=== PATIENT | female | born 2000 | race Caucasian/White ===

== ENCOUNTER 2023-07-16 10:11 | Outpatient (AMB) | payer OTHER, SELFPAY ==
--- NOTE | 2023-07-16 10:14 | A.OFFPC_ITS ---
Vital Signs 07/16/23 10:16 Height 5 ft 4.5 in Weight 103 lb 8 oz BMI 17.5 BP 110/60 Blood Pressure Location Rt brachial Position Sitting Pulse 71 Pulse Source Pulse Oximeter Pulse Oximetry (%) 99 Oxygen Delivery Method Room Air Intake Visit Reasons: NPV- requesting a phy Intake Note: pt is here to est care Is last menstrual period known: Yes Last menstrual period: 06/29/23 Allergies amoxicillin [From Augmentin] Allergy (Mild, Verified 07/16/23 11:03) Rash Medication List - Last Reconciled 07/16/23 by Jennie Duran MD doxycycline hyclate 100 mg PO DAILY norgestimate-ethinyl estradiol 0.18/0.215/0.25 mg-25 mcg 1 tab PO DAILY omeprazole 20 mg PO DAILY Tobacco use date assessed: 07/16/23 Dental Screening Dental Screen Date: 07/16/23 Did you have a dental visit in the last 12 months?: No Did you have a dental problem in the last 6 months where you did not have access to dental care?: No Was dental information given to patient?: Patient has dentist HPI NPV- requesting a phy HPI Details 23-year-old lady, new to practice, here to establish care with a new PCP and for physical exam. No medical records from previous PCP available for review. 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 She has environmental and seasonal allergies, previously was being seen at [facility], and was getting allergy shots, was being seen by Dr. Flannery , but stopped going in 2021, due to problems with transportation. She has history of anxiety depression, previously was on fluoxetine. Complains of heartburn has been taking omeprazole as needed. Has acne vulgaris, stay patient states that she has been tried on several acting medications in the past all of which has not helped in made things worse. However she has never been on any antibiotics for acne, just topical treatment. She does not smoke cigarettes, but does vaping on a regular basis. She goes to [facility] , who has been prescribing her control pills [facility] Medical History (Updated 07/23/23 @ 04:28 by Jennie Duran MD) Underweight Biventricular heart failure with reduced left ventricular function Acne vulgaris Anxiety and depression Heartburn symptom Environmental and seasonal allergies Surgical History (Updated 07/16/23 @ 11:21 by Jennie Duran MD) H/O removal of cyst Hx of eye surgery Family History Mother Mental health disorder Maternal Grandmother Mental health disorder Paternal Grandmother Mental health disorder Social History Housing: Apartment Patient Tobacco Use Status: Never used Tobacco Years Smoked: smokes THC e-Cigarette/Vaping Use: Currently Using Second Hand Smoke Exposure: No Current occupational status: employed Current occupation: [employer] Current occupational exposures/hazards: No Cognitive needs: No Hearing needs: No Vision needs: No Female Reproductive History Menstrual Date of last menstrual period: 06/29/23 control method: pills Other: Goes to [facility] Questionnaire PHQ-9 Over the last 2 weeks, how often have you been bothered by any of the following problems? 1. Little interest or pleasure in doing things: several days 2. Feeling down, depressed, or hopeless: several days 3. Trouble falling or staying asleep, or sleeping too much: nearly every day 4. Feeling tired or having little energy: nearly every day 5. Poor appetite or overeating: more than half the days 6. Feeling bad about yourself - or that you are a failure or have let yourself or your family down: more than half the days 7. Trouble concentrating on things, such as reading the newspaper or watching television: more than half the days 8. Moving or speaking so slowly that other people could have noticed. Or the opposite - being so fidgety or restless that you have been moving around a lot more than usual: several days 9. Thoughts that you would be better off or of hurting yourself in some way: not at all Total score: 15 Depression Screening Interpretation: Positive Depression Screening Follow-up: Existing condition and Community Mental Health Worker F/U (referref to Meagan for help with scheduling therapy appointment) Depression Screening Done: Yes 67316 - PHQ-9 Billing: Yes Source: Developed by Drs. Franklyn Jeffers, Ellyn Arguelles, Arsenio Vale and colleagues, with an educational lydia from [employer]. Thrive Questionnaire Date Thrive assessed: 07/16/23 I am a: Patient What is your living situation today?: I have a steady place to live Within the past 12 months, did the food you bought not last and you didn't have the money to get more?: Never true Within the past 12 months, did you worry whether your food would run out before you got money to buy more?: Never true Do you have trouble paying for medicines?: No Do you have trouble getting transportation to medical appointments?: No Do you have trouble paying your heating and electricity bill?: No Do you have trouble taking care of your child, family member or friend?: No Do you have trouble with day-to-day activities such as bathing, preparing meals, shopping, managing finances, etc.?: No Are you currently unemployed and looking for a job?: No Are you interested in more education?: No AUDIT C Alcohol Use Questionnaire (AUDIT-C) 1. How often do you have a drink containing alcohol?: Monthly or less 2. How many drinks containing alcohol do you have on a typical day when you are drinking?: 3 or 4 3. How often do you have six or more drinks on one occasion?: Never Total Score: 2 CLAY-7 AMB Questionnaire CLAY-7 Date CLAY - 7 assessed: 07/16/23 Feeling nervous, anxious, or on edge: 2 = More than half the days Not being able to stop or control worryin = More than half the days Worrying too much about different things: 2 = More than half the days Trouble relaxin = More than half the days Being so restless that it is hard to sit still: 3 = Nearly every day Becoming easily annoyed or irritable: 3 = Nearly every day Feeling afraid as if something awful might happen: 2 = More than half the days Total CLAY-7 score (0-4 normal; 5-9 mild; 10-14 moderate; 15-21 severe): 16 Source: Developed by Drs. Franklyn Jeffers, Ellyn Arguelles, Arsenio Vale and colleagues, with an educational lydia from [employer]. CLAY-7 Assessment Billing CLAY-7 Assessment Tool: CLAY-7 Assessment 71486 Review of Systems Const Reports as per HPI, Reports no additional complaints and Denies weakness Eyes Denies change in vision ENT Reports nasal congestion, Denies disequilibrium, Denies sinus pressure and Denies sore throat Card Denies chest pain and Denies syncope Resp Denies chest congestion and Denies cough GI Reports as per HPI, Denies melena, Denies hematochezia and Denies change in bowel habits Reports no additional complaints (Goes to OBGYN at [facility]) Musc Reports no additional complaints and Denies abnormal gait Skin/Breast Reports as per HPI Neuro Denies abnormal gait, Denies syncope, Denies lack of coordination, Denies seizure-like activity, Denies disequilibrium and Denies weakness Psych Reports as per HPI Endo Reports no additional complaints Red/Lymph Reports no additional complaints Aller/Immun Reports seasonal rhinorrhea Physical exam (Primary Care) Vital Signs: Last Vital Signs Pulse 71 07/16/23 10:16 BP 110/60 07/16/23 10:16 Pulse Ox 99 07/16/23 10:16 Oxygen Delivery Method Room Air 07/16/23 10:16 BMI result Body Mass Index 17.5 BMI Assessment/Plan discussion: Low BMI Low, Plan discussed: lifestyle, increase calorie intake and dietary Tobacco/Smoking Status: Tobacco use Status Tobacco use date assessed 07/16/23 07/16/23 10:28 Patient Tobacco Use Status Never used Tobacco 07/16/23 10:28 e-Cigarette/Vaping Use Currently Using 07/16/23 10:28 Are you ready to quit: No PHQ-9: PHQ-9 Score PHQ-9: Total score 15 07/22/23 03:21 Depression Screening Interpretation: Positive Depression Screening Follow-up: Existing condition and Community Mental Health Worker F/U (referref to Meagan for help with scheduling therapy appointment) Thrive Assessment: Date of Thrive Assessment Date Thrive assessed 07/16/23 07/16/23 10:41 Const Other: Alert oriented x3, no acute distress noted, ambulatory with normal gait, mother present during visit Nutritional Appearance: underweight Orientation/consciousness: patient oriented x3 HENMT Head: Yes normocephalic Ears: hearing grossly normal bilaterally, TM's normal bilaterally and EAC's normal General nose exam: Normal external nose present Face and sinus: Yes sinuses nontender and Yes face symmetric Mouth: Normal oral and palatal mucosa present, oropharynx normal and moist mucous membranes Eyes General: appearance normal, both eyes and all related structures Conjunctivae: conjunctivae normal Sclerae: sclerae normal Pupils: Equal, round and reactive pupils present EOM: EOMs intact bilaterally Neck Neck: Yes full ROM, Yes no lymphadenopathy and Yes supple Thyroid: Thyroid normal (Nonpalpable) Chest Chest palpation & inspection: normal inspection of the chest Breast/axilla palpation: normal palpation of the breasts Resp Effort & Inspection: normal respiratory effort and able to speak in complete sentences Auscultation: clear to auscultation bilaterally Cardio Rate: regular rate Rhythm: regular rhythm Heart sounds: S1 normal heart sound present and S2 normal heart sound present GI Palpation (GI): Soft to palpation, nontender, no guarding and no masses General: Yes no CVA tenderness and Yes deferred (Goes to [facility] OBGY) Back/Spine/Pelvis Back: no CVA tenderness and No back tenderness Skin Other: Acneiform lesions and comedones noted on face and chin area as well as on anterior neck and upper back Neuro General: patient oriented x3, gait normal, tone normal, moves all extremities, Normal light touch and pain sensation, no focal motor deficits and CN's II-XI in tact bilaterally Cranial nerves: Yes Equal, round and reactive pupils present Extrem General: Yes full ROM, Yes no joint enlargement, Yes no clubbing, cyanosis or edema and Yes normal gait Psych Appearance: grossly normal and well kempt Mental Status: mental status grossly normal Speech and movement: Normal speech and movement present Affect: normal affect Attitude: cooperative Thought process: Normal thought process present Thought content: Normal thought content present Office Procedures Flu Questionnaire Does the patient have a severe egg allergy?: No Does the patient have severe life threatening allergies?: No Does the patient have a fever or illness today?: No Has the patient ever had Guillain-Coffeen Syndrome?: No Has the patient ever had any past reaction to a flu shot?: No Immunizations flu vacc [id number] 6mos up(PF) 60 mcg(15 mcgx4)/0.5 mL IM syringe Performing Provider: Jennie Duran MD [place] [facility] [place] [facility] Administered by: Kristan Castellanos CMA on 07/16/23 10:38 Dose Route Admin Location Dispensed Lot Number Expiration Date NDC 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 Recommended dental visit every 6 months and regular eye exams, at least every 2 years. Take adequate calcium in diet and vitamin-D 3 at 2000 IU per cap once a day, in addition to weight-bearing exercises to help maintain good muscle tone and weight control. Instructed to do self-breast exam, and recommended to get yearly mammogram, starting at age 40. Flu vaccine given today. Request copy of vaccination record and medical records from her previous PCP for review. She goes to [facility] OBGYN for her control pills and cervical cancer screening and pelvic exam. Patient strongly advised to stop vaping (2) Environmental and seasonal allergies: Comment: Previously was getting allergy shots with Dr. Flannery , stopped in 2021 Code(s): J30.89 - Other allergic rhinitis Plan: Referral to Dr. Flannery at [facility] ordered (3) Acne vulgaris: Code(s): L70.0 - Acne vulgaris Plan: Will try on doxycycline 100 mg per capsule to take once a day for 30 days, take medication with food at all times. Advised to do client skin daily with a mild cleanser at bedtime (4) Anxiety and depression: Comment: Previously on fluoxetine Code(s): F41.9 - Anxiety disorder, unspecified; F32.A - Depression, unspecified Plan: Patient declined starting any medication but referred to Niru, our mental health coordinator for assistance in getting in to see a therapist (5) Heartburn symptom: Code(s): R12 - Heartburn Plan: Continue with omeprazole take it only as needed, avoidance of triggers for heartburn (6) Underweight: Code(s): R63.6 - Underweight Plan: Advised to stop vaping, recommended referral for nutrition consult but patient declined, CBC, fasting lipid panel, comprehensive metabolic panel, vitamin-D level ordered today Orders: Orders Complete Blood Count Auto Diff 07/16/23 F32.A - Depression, unspecified, F41.9 - Anxiety disorder, unspecified, J30.89 - Other allergic rhinitis, L70.0 - Acne vulgaris, R12 - Heartburn, Z00.01 - Encounter for general adult medical examination with abnormal findings Lipid Panel 07/16/23 F32.A - Depression, unspecified, F41.9 - Anxiety disorder, unspecified, J30.89 - Other allergic rhinitis, L70.0 - Acne vulgaris, R12 - Heartburn, Z00.01 - Encounter for general adult medical examination with abnormal findings Influenza [id number] Immunization 07/16/23 Z23 - Encounter for immunization Comprehensive [place]. Panel Fast 07/16/23 F32.A - Depression, unspecified, F41.9 - Anxiety disorder, unspecified, J30.89 - Other allergic rhinitis, L70.0 - Acne vulgaris, R12 - Heartburn, Z00.01 - Encounter for general adult medical examination with abnormal findings Vitamin D 25-OH Total 07/16/23 F32.A - Depression, unspecified, F41.9 - Anxiety disorder, unspecified, J30.89 - Other allergic rhinitis, L70.0 - Acne vulgaris, R12 - Heartburn, Z00.01 - Encounter for general adult medical examination with abnormal findings Referrals Dermatology Referral L70.0 - Acne vulgaris Allergy & Immunology Referral J30.89 - Other allergic rhinitis Medications: New doxycycline hyclate 100 mg PO DAILY 30 caps 0RF L70.0 - Acne vulgaris Coding Level of Care Code New Pt Prev Care [id number]([id number] Diagnoses Annual visit for general adult medical examination with abnormal findings Z00.01 Environmental and seasonal allergies J30.89 Acne vulgaris L70.0 Anxiety and depression F41.9; F32.A Heartburn symptom R12 Underweight R63.6 Additional Codes CLAY-7 Assessment Billing - CLAY-7 Assessment Tool: CLAY-7 Assessment [id number] ([id number])
[2023-07-16 10:16] VITALS: BP 110/60; PULSE 71; O2SAT 99; BMI 17.5
== END 2023-07-16 12:13 | disposition home or self-care (01) ==
PROVIDERS: Visit Provider Internal Medicine
DX: Z23 Encounter for immunization (principal)
CPT/HCPCS: 90471; 90686; 96127; 99385

== ENCOUNTER 2024-03-18 13:00 | Outpatient (AMB) | payer OTHER, SELFPAY ==
--- NOTE | 2024-03-18 13:06 | A.OFFPC_ITS ---
Vital Signs 03/18/24 13:07 Height 5 ft 4.5 in Weight 100 lb BMI 16.9 BP 114/76 Blood Pressure Location Lt brachial Position Sitting Pulse 85 Pulse Source Pulse Oximeter Pulse Oximetry (%) 98 Oxygen Delivery Method Room Air Intake Visit Reasons: Office visit Intake Note: Pt is here today for a sick visit. Pt c/o pain in her hands. Pt also states that last night she had a sharp pain on the R side of her lower back and both of her legs felt numb. Allergies amoxicillin [From Augmentin] Allergy (Mild, Verified 03/23/24 00:03) Rash Medication List - Last Reconciled 03/23/24 by Jennie Duran MD doxycycline hyclate 80 mg PO BID norgestimate-ethinyl estradiol 0.18/0.215/0.25 mg-25 mcg 1 tab PO DAILY omeprazole 20 mg PO DAILY Tobacco use date assessed: 03/18/24 Dental Screening Dental Screen Date: 03/18/24 Did you have a dental visit in the last 12 months?: Yes Did you have a dental problem in the last 6 months where you did not have access to dental care?: No Was dental information given to patient?: Patient has dentist HPI Office visit HPI Details 23-year-old lady here today accompanied by mom complaining of recurrent episodes of pain and stiffness in finger joints of both hands, not accompanied by any swelling. This is usually worse towards the end of the day and at night. She is currently working and uses her hands a lot. She also complains of 1 episode of sharp pain in her right lower quadrant accompanied by numbness and tingling in both legs which resolved spontaneously. She has been taking vpkg-wnf-[id number] pain relievers which affords only temporary relief. [facility] Medical History (Updated 03/18/24 @ 13:27 by Jennie Duran MD) Polyarthralgia Trigger finger (acquired) Underweight Biventricular heart failure with reduced left ventricular function Acne vulgaris Anxiety and depression Heartburn symptom Environmental and seasonal allergies Surgical History H/O removal of cyst Hx of eye surgery Family History Mother Mental health disorder Maternal Grandmother Mental health disorder Paternal Grandmother Mental health disorder Social History Housing: Apartment Patient Tobacco Use Status: Never used Tobacco Years Smoked: smokes THC e-Cigarette/Vaping Use: Currently Using Second Hand Smoke Exposure: No service: No Current occupational status: employed 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 Current occupational exposures/hazards: No Cognitive needs: No Hearing needs: No Vision needs: Yes Questionnaire Thrive Questionnaire Date Thrive assessed: 03/18/24 I am a: Patient What is your living situation today?: I choose not to answer this question Within the past 12 months, did the food you bought not last and you didn't have the money to get more?: I choose not to answer this question Within the past 12 months, did you worry whether your food would run out before you got money to buy more?: I choose not to answer this question Do you have trouble paying for medicines?: Yes Do you have trouble getting transportation to medical appointments?: I choose not to answer this question Do you have trouble paying your heating and electricity bill?: I choose not to answer this question Do you have trouble taking care of your child, family member or friend?: I choose not to answer this question Do you have trouble with day-to-day activities such as bathing, preparing meals, shopping, managing finances, etc.?: I choose not to answer this question Are you currently unemployed and looking for a job?: I choose not to answer this question Are you interested in more education?: I choose not to answer this question Please select the resources that you would like help with: Housing/Long Term Currently or been in a relationship where the following occur: I choose not to answer THRIVE Score: 0 AUDIT C Alcohol Use Questionnaire (AUDIT-C) 1. How often do you have a drink containing alcohol?: 2-4 times a month 2. How many drinks containing alcohol do you have on a typical day when you are drinking?: 3 or 4 3. How often do you have six or more drinks on one occasion?: Less than monthly Total Score: 4 CLAY-7 AMB Questionnaire CLAY-7 Date CLAY - 7 assessed: 03/18/24 Source: Developed by Drs. Franklyn Jeffers, Ellyn Arguelles, Arsenio Vale and colleagues, with an educational lydia from [employer]. CLAY-7 Assessment Billing CLAY-7 Assessment Tool: pt declined-do not bill Review of Systems Const All systems reviewed & are unremarkable except as noted in HPI and below ENT Reports no additional complaints Card Reports no additional complaints Resp Reports no additional complaints GI Reports no additional complaints Musc Reports as per HPI Skin/Breast Denies lesions and Denies rash Neuro Reports no additional complaints Physical exam (Primary Care) Vital Signs: Last Vital Signs Pulse 85 03/18/24 13:07 BP 114/76 03/18/24 13:07 Pulse Ox 98 03/18/24 13:07 Oxygen Delivery Method Room Air 03/18/24 13:07 BMI result Body Mass Index 16.9 BMI Assessment/Plan discussion: Low BMI Low, Plan discussed: lifestyle, increase calorie intake and dietary Tobacco/Smoking Status: Tobacco use Status Tobacco use date assessed 03/18/24 03/18/24 13:14 Patient Tobacco Use Status Never used Tobacco 03/18/24 13:14 e-Cigarette/Vaping Use Currently Using 03/18/24 13:14 Are you ready to quit: No PHQ-9: PHQ-9 Score PHQ-9: Total score 10 03/19/24 03:51 Thrive Assessment: Date of Thrive Assessment Date Thrive assessed 03/18/24 03/18/24 13:14 Currently or been in a relationship where the following occur: I choose not to answer Const Other: Alert oriented x3 accompanied by mom, underweight, no acute cardiorespiratory distress noted Nutritional Appearance: underweight Orientation/consciousness: patient oriented x3 HENMA Head: Yes normocephalic General nose exam: Normal external nose present Face and sinus: Yes face symmetric Mouth: Normal oral and palatal mucosa present, oropharynx normal and moist mucous membranes Eyes General: appearance normal, both eyes and all related structures Neck Neck: Yes full ROM, Yes no lymphadenopathy and Yes supple Thyroid: Thyroid normal (Nonpalpable) Resp Effort & Inspection: normal respiratory effort and able to speak in complete sentences Auscultation: clear to auscultation bilaterally Cardio Rate: regular rate Rhythm: regular rhythm Heart sounds: S1 normal heart sound present and S2 normal heart sound present GI Palpation (GI): Soft to palpation, nontender, no guarding and no masses Neuro General: patient oriented x3, gait normal, tone normal, moves all extremities, Normal light touch and pain sensation, no focal motor deficits and CN's II-XI intact bilaterally Extrem Other: Slight tenderness on palpation of left MCP General: Yes full ROM, Yes no joint enlargement, Yes no clubbing, cyanosis or edema and Yes normal gait Assessment and Plan Assessment & Plan (1) Underweight: Code(s): R63.6 - Underweight Plan: Patient advised to eat her meals regularly, avoid eating a lot of processed foods, junk food. Will check vitamin B12, vitamin-D and folic acid levels as well as TSH with reflex free T4, CBC and comprehensive metabolic panel. (2) Trigger finger (acquired): Code(s): M65.30 - Trigger finger, unspecified finger Plan: Advised to try massaging area with diclofenac gel 1% may use 3 times a day as needed, resting of joint strongly advised, if no improvement (3) Polyarthralgia: Code(s): M25.50 - Pain in unspecified joint Plan: Ordered labs for TSH with free T4 check, rheumatoid factor, total CK level, magnesium. Advised to try using kyqv-vqc-ovqbxgu diclofenac gel 1% to affected area 3 to 4 times a day as needed. Orders: Orders Vitamin D 25-OH Total 03/18/24 I50.814 - Right heart failure due to left heart failure, M25.50 - Pain in unspecified joint, M65.30 - Trigger finger, unspecified finger, R63.6 - Underweight Vitamin B12 and Folate 03/18/24 I50.814 - Right heart failure due to left heart failure, M25.50 - Pain in unspecified joint, M65.30 - Trigger finger, unspecified finger, R63.6 - Underweight TSH reflex Free T4 03/18/24 I50.814 - Right heart failure due to left heart failure, M25.50 - Pain in unspecified joint, M65.30 - Trigger finger, unspecified finger, R63.6 - Underweight Complete Blood Count Auto Diff 03/18/24 I50.814 - Right heart failure due to left heart failure, M25.50 - Pain in unspecified joint, M65.30 - Trigger finger, unspecified finger, R63.6 - Underweight Erythrocyte Sedimentation Rate 03/18/24 I50.814 - Right heart failure due to left heart failure, M25.50 - Pain in unspecified joint, M65.30 - Trigger finger, unspecified finger, R63.6 - Underweight Rheumatoid Factor 03/18/24 M25.50 - Pain in unspecified joint Comprehensive Met. Panel 03/18/24 I50.814 - Right heart failure due to left heart failure, M25.50 - Pain in unspecified joint, M65.30 - Trigger finger, unspecified finger, R63.6 - Underweight Magnesium 03/18/24 I50.814 - Right heart failure due to left heart failure, M25.50 - Pain in unspecified joint, M65.30 - Trigger finger, unspecified finger, R63.6 - Underweight Creatine Kinase Total 03/18/24 I50.814 - Right heart failure due to left heart failure, M25.50 - Pain in unspecified joint, M65.30 - Trigger finger, unspecified finger, R63.6 - Underweight Coding Level of Care Code Est Pt Level 4 (06530) Diagnoses Underweight R63.6 Trigger finger (acquired) M65.30 Polyarthralgia M25.50
[2024-03-18 13:07] VITALS: BP 114/76; PULSE 85; O2SAT 98; BMI 16.9
== END 2024-03-18 14:30 | disposition home or self-care (01) ==
PROVIDERS: PCP Internal Medicine; Visit Provider Internal Medicine
DX: R63.6 Underweight (principal); M65.30 Trigger finger, unspecified finger; M25.50 Pain in unspecified joint
CPT/HCPCS: 99214

== ENCOUNTER 2024-03-18 13:31 | Outpatient (REF) | payer OTHER, SELFPAY ==
[2024-03-18 16:14] LABS: MANUAL DIFF FLAG NO
[2024-03-18 16:30] LABS: Basophils Percent Auto 0.7 % (0-2); Eosinophils Absolute Auto 0.2 X10*3/uL (0.0-0.4); Eosinophils Percent Auto 2.9 % (0-4); Hematocrit 40.1 % (37.0-47.0); Hemoglobin 13.3 g/dl (12.0-16.0); Imm Gran Abs Auto 0.02 X10*3/uL (0.00-0.03); Imm Gran Pct Auto 0.3 % (0.0-0.4); Lymphocytes Absolute Auto 2.4 X10*3/uL (1.2-4.9); Lymphocytes Percent Auto 38.4 % (20-40); Mean Corpuscular HGB Conc 33.2 g/dl (31.0-35.0); Mean Corpuscular Hemoglobin 30.5 pg (27.0-33.0); Mean Platelet Volume 10.5 fL (9.4-12.3); Monocytes Absolute Auto 0.3 X10*3/uL (0.1-1.2); Monocytes Percent Auto 4.6 % (2-11); Neutrophils Absolute Auto 3.3 x10*3/uL (2.0-8.3); Neutrophils Percent Auto 53.1 % (45-73); Platelet Count 290 X10*3/uL (160-400); Red Blood Count 4.36 X10*6/uL (4.20-5.50); Red Cell Distribution Width 11.8 % (11.0-16.0); White Blood Count 6.1 X10*3/uL (4.8-10.8)
[2024-03-18 16:55] LABS: Rheumatoid Factor < 13.0 IU/mL (<15.0)
[2024-03-18 17:02] LABS: Alanine Aminotransferase 12 U/L (0-31); Albumin Level 4.4 g/dL (3.5-5.0); Alkaline Phosphatase 60 U/L (39-117); Anion Gap 10 (12-20); Aspartate Amino Transferase 14 U/L (5-31); Bilirubin Total 0.6 mg/dL (0.0-1.0); Blood Urea Nitrogen 8 mg/dL (9-16); Calcium 9.9 mg/dL (8.4-10.2); Carbon Dioxide 26 mmol/L (22-29); Chloride 107 mmol/L (96-108); Cholesterol 158 mg/dL (<200); Estimated Glomerular Filt Rate > 60; Glucose Fasting 95 mg/dL (60-99); Glucose Random 95 mg/dL (60-115); HDL Cholesterol 76 mg/dL (>40); LDL Cholesterol Calculated 68 mg/dL (<100); Magnesium 2.1 mg/dL (1.6-2.6); Potassium 3.4 mmol/L (3.3-5.1); Sodium 140 mmol/L (135-145); Total Protein 7.4 g/dL (6.5-8.0); Triglycerides 74 mg/dL (<150)
[2024-03-18 17:17] LABS: TSH reflex Free T4 0.64 uIU/mL (0.32-4.0); Vitamin D 25-OH Total 56.7 ng/mL (>30)
[2024-03-18 17:22] LABS: Folate 9.4 ng/mL (> or = 4.0); Vitamin B12 551 pg/mL (200-900)
[2024-03-18 17:38] LABS: Erythrocyte Sedimentation Rate 3 MM/HR (0-20)
== END 2024-03-18 13:32 | disposition home or self-care (01) ==
LOC: HO.HMGCLDS 13:31
PROVIDERS: PCP Internal Medicine; Visit Provider Internal Medicine
DX: Z00.01 Encounter for general adult medical examination with abnormal findings (principal); L70.0 Acne vulgaris; F41.9 Anxiety disorder, unspecified; F32.A Depression, unspecified; R12 Heartburn; J30.89 Other allergic rhinitis; R63.6 Underweight; I50.814 Right heart failure due to left heart failure; M65.30 Trigger finger, unspecified finger; M25.50 Pain in unspecified joint
CPT/HCPCS: 36415; 80053; 80061; 82306; 82550; 82607; 82746; 83735; 84443; 85025; 85652; 86431

== ENCOUNTER 2024-06-19 15:09 | Outpatient (AMB) | payer OTHER, SELFPAY ==
--- NOTE | 2024-06-19 15:20 | AM.OFFWIN_ITS ---
Intake Vital Signs 06/19/24 15:21 Height 5 ft 4.5 in Weight 104 lb BMI 17.6 BP 118/60 Blood Pressure Location Rt brachial Position Sitting Pulse 70 Pulse Source Pulse Oximeter Pulse Oximetry (%) 98 Oxygen Delivery Method Room Air Intake Visit Reasons: EP RT pointer finger pain, LRQ pain Intake Note: Patient here for pelvic pain that started Saturday after Hiking the previous weekend. She also wanted to have her finger on right hand checked out, she was told she had a cyst on it and has been very painful this past week. Patient Tobacco Use Status: Never used Tobacco Allergies amoxicillin [From Augmentin] Allergy (Mild, Verified 06/19/24 15:23) Rash Do you need a note to return to daycare/school/sports/work: No HPI HPI Comments History of Present Illness Details Patient is a 24-year-old female with 2 complaints today. First she states her right index finger has a cyst on it which has been there for awhile but is getting larger and more painful. She tells me she went to an urgent care in [place] where they did not x-ray and told her it was a cyst and to tried to do jwwez-ab-huoara exercises but there was nothing else to be done for it. She tells me her sister has had multiple similar cysts but they were more on her wrist than on her finger. Her 2nd complaint is she has right lower quadrant pain that extends into her right hip. She tells me she went hiking last weekend and typically does not go hiking and the pain is worse with movement. She has not taken any medications to make herself feel better. She denies any nausea vomiting diarrhea or fevers [facility] Medical History (Updated 06/19/24 @ 16:11 by Guerline Hyman PA-C) Polyarthralgia Trigger finger (acquired) Underweight Biventricular heart failure with reduced left ventricular function Acne vulgaris Anxiety and depression Heartburn symptom Environmental and seasonal allergies Surgical History H/O removal of cyst Hx of eye surgery Family History Mother Mental health disorder Maternal Grandmother Mental health disorder Paternal Grandmother Mental health disorder Social History (Reviewed 03/18/24 @ 13:12 by MOON Lucero Housing: Apartment Patient Tobacco Use Status: Never used Tobacco Years Smoked: smokes THC e-Cigarette/Vaping Use: Currently Using Second Hand Smoke Exposure: No service: No Current occupational status: employed 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 Current occupational exposures/hazards: No Cognitive needs: No Hearing needs: No Vision needs: Yes Review of Systems Const All systems reviewed & are unremarkable except as noted in HPI and below Physical Exam Vital Signs: Last Vital Signs Pulse 70 06/19/24 15:21 BP 118/60 06/19/24 15:21 Pulse Ox 98 06/19/24 15:21 Oxygen Delivery Method Room Air 06/19/24 15:21 BMI result Body Mass Index 17.6 Const General: cooperative, healthy appearing, comfortable, no acute distress and well developed Orientation/consciousness: patient oriented x3 Limitations: no limitations HEENT Head: Yes normal to inspection Ears: hearing grossly normal bilaterally General nose exam: Normal external nose present Face and sinus: Yes normal facial exam Eyes General: appearance normal, both eyes and all related structures Neck Neck: Yes normal visual inspection and Yes full ROM Resp Effort & Inspection: normal respiratory effort and able to speak in complete sentences GI Inspection: Yes normal to inspection Palpation (GI): Soft to palpation and nontender Skin General skin exam: no rashes or lesions noted Neuro General: patient oriented x3 Extrem General: Yes normal to inspection Right upper extremity: Extremity exam: right hand Details: normal to inspection, normal capillary refill, neuromotor exam normal, neurosensory exam normal, tendon exam normal, tenderness Location: of the 2nd digit Location: at the MCP joint and on the radial aspect, vascular exam Details: normal capillary refill, normal ROM of fingers and swelling; no unusual warmth, no abrasions, no lacerations and no ecchymosis Assessment & Plan Assessment & Plan (1) Ganglion cyst of finger of right hand: Code(s): M67.441 - Ganglion, right hand Plan: Likely a ganglion cyst versus other kind of cyst, we will send a referral for hand orthopedics to follow up with patient as it is getting larger and more painful. (2) Strain of muscle of right hip: Code(s): S76.011A - Strain of muscle, fascia and tendon of right hip, initial encounter Qualifiers: Encounter type: initial encounter Qualified Code(s): S76.011A - Strain of muscle, fascia and tendon of right hip, initial encounter Plan: Recommended rest and naproxen. Plan VSS Orders: Referrals Orthopedics Referral M67.441 - Ganglion, right hand Coding Level of Care Code Est Pt Level 4 (91253) Diagnoses Ganglion cyst of finger of right hand M67.441 Strain of muscle of right hip, initial encounter S76.011A Encounter type: initial encounter
[2024-06-19 15:21] VITALS: BP 118/60; PULSE 70; O2SAT 98; BMI 17.6
== END 2024-06-19 16:18 | disposition home or self-care (01) ==
PROVIDERS: PCP Internal Medicine; Visit Provider Physician Assistant
DX: M67.441 Ganglion, right hand (principal); S76.011A Strain of muscle, fascia and tendon of right hip, initial encounter

== ENCOUNTER → 2024-06-19 15:09 | Outpatient (BNVA) | payer OTHER, SELFPAY | PROVIDERS: PCP Internal Medicine; Visit Provider Physician Assistant ==

== ENCOUNTER 2024-07-07 09:34 | Outpatient (AMB) | payer OTHER, SELFPAY ==
--- NOTE | 2024-07-07 09:40 | MHC.OFFVIS ---
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 Patient reports she noticed this about a year ago. She expresses pain from this cyst and it is affecting her ROM. 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 Denies numbness and tingling. 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 Patient was seen at urgent care, where she was told that she had a ganglion cyst of the second MCP joint of the right hand. Today, she reports that this pain has continued, and that this inhibits her ability to work. Patient denies any numbness or tingling. No other acute complaints or concerns. [facility] Medical History (Updated 07/07/24 @ 10:39 by SALBADOR Leung) Polyarthralgia Trigger finger (acquired) Underweight Biventricular heart failure with reduced left ventricular function Acne vulgaris Anxiety and depression Heartburn symptom Environmental and seasonal allergies Surgical History H/O removal of cyst Hx of eye surgery Family History Mother Mental health disorder Maternal Grandmother Mental health disorder Paternal Grandmother Mental health disorder Social History Housing: Apartment Patient Tobacco Use Status: Never used Tobacco Years Smoked: smokes THC e-Cigarette/Vaping Use: Currently Using Second Hand Smoke Exposure: No service: No Current occupational status: employed 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 Neuro: Normal sensation of the tips of all digits of the right hand at this time Vascular: Cap refill brisk Pain: Patient reports no tenderness to palpation of the second MCP joint of the right hand No other tenderness to palpation noted Patient does report discomfort with ROM of the R hand ROM: Patient is able to make a closed fist and extend all digits of the R hand, but reports some discomfort when doing so Skin: No lacerations or abrasions. General: No ecchymosis, erythema, or evidence of infection. No focal area of fluctuance and swelling near the second MCP joint, no evidence of ganglion cyst Psych: Appears grossly normal Affect normal Attitude cooperative Results Reviewed Results Reviewed: X-rays obtained in the office today and independently reviewed by me, Alonzo Kovacs PA-C, demonstrate no fracture or acute bony abnormality. Assessment & Plan Assessment & Plan (1) Right hand pain: Code(s): M79.641 - Pain in right hand Category: Medical Plan 1. Pain of right index finger Ongoing for 1 year Patient is educated that there is no acute indication of a ganglion cyst at this time There is also no evidence of acute bony abnormality Patient is educated that I will refer her to OT for ROM, strengthening or the R hand in the setting of pain and stiffness of the R hand Patient is amenable to this plan Patient will follow up as needed with any acute concerns Orders: Orders OT Evaluation and Treatment Today M79.641 - Pain in right hand XR hand RT min 3V Today M79.641 - Pain in right hand Coding Level of Care Code New Pt Level 3 (96092) Diagnoses Right hand pain M79.641
[2024-07-07 09:41] VITALS: BMI 17.8
== END 2024-07-07 10:41 | disposition home or self-care (01) ==
LOC: HO.HOS 09:34
PROVIDERS: PCP Internal Medicine; Referring Provider Internal Medicine
DX: M79.641 Pain in right hand (principal)
CPT/HCPCS: 99203

== ENCOUNTER 2024-07-07 09:34 | Outpatient (REF) | payer OTHER, SELFPAY | END 2024-07-07 09:35 | disposition home or self-care (01) | LOC: HO.HOSX 09:34 | PROVIDERS: PCP Internal Medicine | DX: M79.641 Pain in right hand (principal) | CPT/HCPCS: 73130 ==

== ENCOUNTER 2024-12-19 11:54 | Outpatient (REF) | payer OTHER, SELFPAY ==
--- OUTSIDE RECORDS SUMMARY | 2024-12-19 11:57 | XMS_ITS | Encounter Summary ---
Author Organization [facility] Address [address] [place], [place] [address] Phone Care Team Providers Care Remnant Sorter Name Role Phone Tamiko Shelton MD Primary Care Provider [phone] Reason for Visit * Reason Comments Med Refill Encounter Details Date Type Department Care Team (Late st Contact Info) Description 01/26/2019 Refill [facility] [place] [address] [place] [address] Leonor Duggan MD Depression, unspecified depression type Social History Tobacco Use Types Packs/Day Years Used Date Smoking Tobacco: Never Smokeless Tobacco: Never Comments:no vaping Alcohol Use Standard Drinks/Week Comments No 0 (1 standard drink = 0.6 oz pur e alcohol) Hunger/Food Answer Date Recorded No 09/06/2018 Stable Housing Answer Date Recorded 0 09/06/2018 Transportation Concerns Answer Date Rec orded No 09/06/2018 Hazards in Home Answer Date Recorded No 09/06/2018 Financing Utilities Answer Date Recorde d No 09/06/2018 Safety at Home Answer Date Recorded No 09/06/2018 Outside Support Answer Date Recorded No 09/06/2018 Understanding Health Concerns Answer Da te Recorded No 09/06/2018 Financing Health Concerns Answer Date R ecorded No 09/06/2018 Missing School or Work Answer Date Shaka rded No 09/06/2018 Comments Unknown Sex and Gender Information Value Date Recorded Sex Assigned at Not on file Legal Sex Female 6:05 PM EST Gender Identity Female 12/20/2020 4:32 PM EDT Sexual Orientation Not on file documented as of this encounter Plan of Treatment Not on file documented as of this encounter Visit Diagnoses Diagnosis Depression, unspecified depression type documented in this encounter Care Teams Remnant Sorter Relationship Specialty Start Date End Date Tamiko Shelton MD [address] [place] [id number] PCP - General Pediatrics 10/19/22 08/14/23 documented as of this encounter
--- OUTSIDE RECORDS SUMMARY | 2024-12-19 11:57 | XMS_ITS | Encounter Summary ---
Author Organization [facility] Address [address] [place], [place] [id number] Phone Care Team Providers Care Back Tacker Name Role Phone Tamiko Shelton MD Primary Care Provider [phone] Reason for Visit * Reason Comments Med Refill Encounter Details Date Type Department Care Team (Late st Contact Info) Description 11/08/2021 Refill [facility] - [place] [address] [place] [address] Leonor Duggan MD Depression with anxiety Social History Tobacco Use Types Packs/Day Years Used Date Smoking Tobacco: Never Smokeless Tobacco: Never Comments:no vaping Alcohol Use Standard Drinks/Week Comments No 0 (1 standard drink = 0.6 oz pur e alcohol) Hunger/Food Answer Date Recorded In the last 12 months, did y ou or your family ever eat less than you felt you should because there wasn't enough money for food? No 08/29/2020 Stable Housing Answer Date Recorded Are you worried that in the next 2 months you may not have stable housing? No 08/29/2020 Transportation Concerns Answer Date Rec orded In the last 12 months, have you or your family ever had to go without healthcare because you didn't have a way to get there? No 08/29/2020 Hazards in Home Answer Date Recorded Think about the place you li ve. Do you have problems with any of the following? Pests (mice or roaches), mold, no/not working smoke detectors, water leaks, no window guards. No 2020 Financing Utilities Answer Date Recorde d In the last 12 months, has t he electric, gas, oil, or water company threatened to shut off your services in your home? No 08/29/2020 Safety at Home Answer Date Recorded Are you or your family worried about feeling saf e in your home? No 08/29/2020 Outside Support Answer Date Recorded Do you feel that you need mo re support from other people or programs to help you care for yourself or your family? No 08/29/2020 Understanding Health Concerns Answer Da te Recorded Do you need help understandi ng your or your child's healthcare needs (diagnosis, medications, plan, etc.)? No 08/29/2020 Financing Health Concerns Answer Date R ecorded In the last 12 months, was t here a time when your child needed to see a doctor or get medications or supplies but could not because of cost? No 08/29/2020 Missing School or Work Answer Date Shaka rded Did you or your child miss s chool or work because of a health problem that could have been avoided? No 08/29/2020 Comments No Sex and Gender Information Value Date Recorded Sex Assigned at Not on file Legal Sex Female 6:05 PM EST Gender Identity Female 12/20/2020 4:32 PM EDT Sexual Orientation Not on file documented as of this encounter Plan of Treatment Not on file documented as of this encounter Visit Diagnoses Diagnosis Depression with anxiety Dysthymic disorder documented in this encounter Care Teams Back Tacker Relationship Specialty Start Date End Date Tamiko Shelton MD [address] [place] [id number] PCP - General Pediatrics 10/19/22 08/14/23 documented as of this encounter
--- OUTSIDE RECORDS SUMMARY | 2024-12-19 11:57 | XMS_ITS | Clinical Summary ---
Author Organization [facility] Address [address] [place] [address] Phone Care Team Providers Care Non Destructive Testing Scientist Name Role Phone Unavailable Primary Care Provider Unavailabl e Allergies Active Allergy Reactions Criticality Noted Date Comments Amoxicillin-Pot Clavulanate Rash Low Environmental Postive Skin test/Positive RAST 11/07/2017 Dogs, dust mites, pollen Medications EPINEPHrine 0.3 MG/0.3ML injection syringe USE DIRECTED FOR ANAPHYLAXIS THEN CALL 911 10/06/19 21 Active Aczone 7.5 % gelIndications:Ac ne vulgaris Apply 1 application topically daily. 30 g 2 11/16/19 22 Active Vit-Fe Lxnbhxt-UI-LHZ ( Vitamin/Min +DHA) 27-0.8-200 MG capsuleIndication s:Encounter for preconception consultation Take 1 tablet by mouth daily. 90 capsule 2 06/13/20 22 Active FLUoxetine 20 MG capsuleIndication s:Depression with anxiety TAKE 1 CAPSULE (20 MG TOTAL) BY MOUTH ONCE DAILY AT APPROXIMATELY THE SAME TIME EACH DAY. 90 capsule 1 09/10/19 23 Active Omeprazole 20 MG Tablet Delayed Release Dispersible Take by mouth. 12/23/19 23 Active albuterol HFA 108 (90 Base) MCG/ACT inhalerIndication s:Bronchospasm Inhale 2 puffs every 4 (four) hours as needed for wheezing or shortness of breath (cough). 1 Units 12/24/19 23 Active Active Problems Problem Noted Date Diagnosed Date Cardiomyopathy 05/09/2023 Overview (05/09/2023): WITH RV DYSFUNCTION, OF UNKNOWN ETIOLOGY 04/2023 - Following with [facility]iology. Reduced EF 35-45%. Will be getting cardiac MRI. Proteinuria 01/11/2023 Overview (01/15/2023): Noted to have protein in urine at visit on 12/26/2022 and large amount on visit 01/11/2023. Had 1+ protein on first morning void (01/12/2023). Normal urine protein, creatinine and protein/creatinine ratio.Likely etiology of orthostatic proteinuria. Assessment & Plan (01/11/2023 5:08 PM EDT): Noted to have protein in urine at visit on 12/26/2022. Persistence of protein today (Large amount on dipstick). Normal blood pressure. Discussed likely etiology of orthostatic proteinuria. Will obtain first morning urine sample. To drop off in clinic tomorrow. Will also send for urine protein and creatinine. Has Cardiology appointment next month with EKG. Consider blood work and Nephrology referral pending results of repeat urine sample. Underweight 12/23/2022 Weight loss 12/14/2021 Assessment & Plan (12/23/2022 11:19 PM EDT): 12/2022: Wt 95 lbs, down from 102 lbs May 2022. Previously lost wt d/t GI sx but these are controlled now on omeprazole. States she is eating meals and snacks all day, except not always breakfast. Denies desire to lose weight. Has syncope, headaches. Return in 3 days for extended eval . Possible eating d/o. Menses just ended. Assessment & Plan (06/13/2022 9:21 PM EDT): Stable. GI symptoms have resolved. Flat foot 11/15/2021 Allergy 12/21/2020 Overview (06/07/2021): Gets allergy shots at [facility]. Has epipen per city editor from prior reaction to allergy shot. Chronic gastritis without bleeding 03/02/2019 Overview (08/26/2019): doing well on Zantac, weight has stabilized Taking Zantac daily with good effect Assessment & Plan (12/23/2022 11:16 PM EDT): Doing well on omeprazole Assessment & Plan (06/13/2022 9:22 PM EDT): Improved now Assessment & Plan (08/29/2020 6:56 PM EST): Stable. Patient reports taking Zantac-will check with pharmacy but should be transitioned to different medication if this is the case due to recall Assessment & Plan (08/27/2019 9:50 AM EST): Improved on Zantac daily Depression with anxiety 11/05/2018 Overview (12/23/2022): with anxiety as well, started on Prozac SCARED scores improved on Prozac 10, increased to 20 mg 11/2018-Doing well on Prozac 20 mg 12/2022: stopped fluoxetine for awhile, restarted recently at 20 mg - had been increased to 30 mg in May but she doesn't think she took the higher dose. No longer has therapist. Assessment & Plan (11/15/2021 7:37 PM EDT): Stable Assessment & Plan (08/29/2020 6:55 PM EST): Doing well on Prozac 20 mg Assessment & Plan (08/27/2019 9:46 PM EST): Will increase Prozac to 30 mg for increased depressive symptoms (though PHQ9 score low) and recommended recheck in 4 weeks. Dry skin 07/30/2018 Overview (08/26/2019): Uses all hypoallergenic products Assessment & Plan (08/27/2019 9:57 AM EST): Persists, recommended emolients BID and use Zyrtec as needed for itchiness. Bronchospasm 11/06/2017 Overview (11/23/2020): Acute, associated with illness 10/2017 Last Assessment & Plan: ?? Use your albuterol inhaler 4 puffs every 4 hours for the next 2 days, then as needed. ?? Monitor for worsening difficulty breathing, fever, dehydration, or any other new or worsening symptoms. Overview: Acute, associated with illness 10/2017 Last Assessment & Plan: ?? Use your albuterol inhaler 4 puffs every 4 hours for the next 2 days, then as needed. ?? Monitor for worsening difficulty breathing, fever, dehydration, or any other new or worsening symptoms. Acne vulgaris 04/11/2016 Overview (11/23/2020): Improved on OCP and topicals Has been following with Dr. Logan. Using topicals Overview: Using OTC face wash, seeing Dr. Logan Last Assessment & Plan: Will get f/u eval Dr. Logan. Recommend resuming the treatment she recommended. Assessment & Plan (06/13/2022 9:21 PM EDT): Improved on topical regimen. Will discontinue spironolactone given planning Assessment & Plan (11/15/2021 7:37 PM EDT): On OCP+ aczone. Will also add spironolactone. Recheck 4 weeks. Discussed risks/side effects. Assessment & Plan (08/29/2020 6:55 PM EST): Stable. Following with derm Assessment & Plan (08/27/2019 9:57 AM EST): Much improved. Assessment & Plan (02/26/2018 9:36 AM EDT): Continue to use OCP. Will start tretinoin cream. Assessment & Plan (06/18/2017 3:25 PM EDT): Will get f/u eval Dr. Logan. Recommend resuming the treatment she recommended. Resolved Problems Problem Noted Date Diagnosed Date Resolved Date Pruritic erythematous rash 12/21/2020 1 Need for case management follow-up 08/29/2020 06/13/2022 Assessment & Plan (08/29/2020 4:54 PM EST): Virtual WCV done 08/29/2020 - follow-up needs: ?? Height, Weight ?? Blood Pressure ?? Hearing ?? Scoliosis screening ?? Vaccines: Hep a, flu Tension headache 08/27/2019 08/29/2020 Overview (08/29/2020): discssed triggers, recommended increased sleep and stress reduction 08/2020-now resolved Right patellofemoral syndrome 07/30/2018 08/26/2019 Overview (03/05/2019): Referred to PT Seen by educational program director and given orthotics Seeing PT at [facility], also saw ortho there who noted femoral anteversion and intoeing which makes patellofemoral syndrome more likely Chronic back pain 07/30/2018 08/26/2019 Overview (03/09/2019): Getting PT at [facility] Bronchospasm 11/06/2017 07/30/2018 Overview (07/30/2018): Acute, associated with illness 10/2017 None since that episode 07/2018 Assessment & Plan (11/06/2017 11:35 AM EDT): ?? Use your albuterol inhaler 4 puffs every 4 hours for the next 2 days, then as needed. ?? Monitor for worsening difficulty breathing, fever, dehydration, or any other new or worsening symptoms. Right shoulder pain 10/19/2017 06/13/20 Overview (01/18/2021): Cause uncertain. Has occurred once in past. No trauma, no sports. Will apply sling and get ortho eval where XRays will be done also; Ortho eval with normal xrays, f/u with Dr. De La Paz in 3 weeks 10/2020-referred to PT 12/2020-improved with PT Epidermoid cyst of skin 06/18/201705/20 Overview (11/23/2020): L neck - will get vivienne Parra; was on antibiotics, s/p I&D, waiting to do full excision until summer Was excised, sometimes the site itches, healing well per patient Overview: L neck - will get vivienne Parra; was on antibiotics, s/p I&D, waiting to do full excision until summer Last Assessment & Plan: Follow up with surgery. Assessment & Plan (07/29/2017 3:29 PM EST): Follow up with surgery. Costochondritis 06/18/2017 07/29/2017 Overview (06/18/2017): Rest, advil if needed Immunizations Immunization Administration Dates Next Due COVID-19 Pfizer, monovalent, 12+ years 1 DTaP 05/17/2006, 4,2002,08/24,2002 HPV Vaccine 9 Valent 07/29/2017 HPV, Quadrivalent 06/23/2014 Hep A, Adult 06/13/2022 Hep A, ped/adol 08/26/2019 Hep B, ped/adol 01/14/2003,2002,2002 Hib (PRP-T) 07/30/2003, 3,2002,06/23 IPV 05/17/2006, 3,2002,06/23 Influenza 06/23/2014,05/07/2013,04/25/2012 Influenza, injectable, quadr ivalent, preservative free 06/13/2022,12/13/2021 MMR 04/16/2007,07/30/2003 Meningococcal Conj (Menactra) MCV4P 08/26/2019,1 09/25/2015 Pneumococcal Conjugate 07/30/2003,2002,2002,06/23 Tdap 05/04/2013 Varicella 04/16/2007,04/20/2003 Family History Relation Name Status Comments Other 1 Alive Other 2 Alive Other 3 Alive Paternal Grandfather Alive Paternal Grandmother Alive Social History Tobacco Use Types Packs/Day Years Used Date Smoking Tobacco: Never Smokeless Tobacco: Never Tobacco Cessation:Counseling Given: Not Answered Alcohol Use Standard Drinks/Week Comments No 0 (1 standard drink = 0.6 oz pur e alcohol) Hunger/Food Answer Date Recorded In the last 12 months, did y ou or your family ever eat less than you felt you should because there wasn't enough money for food? No 06/13/2022 Stable Housing Answer Date Recorded Are you worried that in the next 2 months you may not have stable housing? No 06/13/2022 Transportation Concerns Answer Date Rec orded In the last 12 months, have you or your family ever had to go without healthcare because you didn't have a way to get there? No 06/13/2022 Hazards in Home Answer Date Recorded Think about the place you li ve. Do you have problems with any of the following? Pests (mice or roaches), mold, no/not working smoke detectors, water leaks, no window guards. No 2021 Financing Utilities Answer Date Recorde d In the last 12 months, has t he electric, gas, oil, or water company threatened to shut off your services in your home? No 06/13/2022 Safety at Home Answer Date Recorded Are you or your family worried about feeling saf e in your home? No 06/13/2022 Outside Support Answer Date Recorded Do you feel that you need mo re support from other people or programs to help you care for yourself or your family? No 06/13/2022 Understanding Health Concerns Answer Da te Recorded Do you need help understandi ng your or your child's healthcare needs (diagnosis, medications, plan, etc.)? No 06/13/2022 Financing Health Concerns Answer Date R ecorded In the last 12 months, was t here a time when your child needed to see a doctor or get medications or supplies but could not because of cost? No 06/13/2022 Missing School or Work Answer Date Shaka rded Did you or your child miss s chool or work because of a health problem that could have been avoided? No 06/13/2022 Comments No Sex and Gender Information Value Date Recorded Sex Assigned at Not on file Legal Sex Female 6:05 PM EST Gender Identity Female 12/20/2020 4:32 PM EDT Sexual Orientation Not on file Last Filed Vital Signs Vital Sign Reading Time Taken Comments Blood Pressure 117/78 01/11/2023 3:31 PM EDT Pulse 85 01/11/2023 3:31 PM EDT Temperature 36.6 ??C (97.9 ??F) 08/18/2021 12:[address] Respiratory Rate 20 06/16/2019 2:29 PM EDT Oxygen Saturation 99% 06/16/2019 2:29 PM EDT Inhaled Oxygen Concentration - - Weight 44.1 kg (97 lb 3.2 oz) 01/11/2023 3:31 PM EDT Height 163.8 cm (5' 4.5 ) 06/13/2022 10:13 AM ED T Body Mass Index 16.43 06/13/2022 10:13 AM EDT Plan of Treatment Health Maintenance Due Date Last Done Comments Men B Vaccine (1 of 2 - Standard) 2018 DTaP,Tdap,and Td Vaccines (7 - Td or Tdap) 05/04/2023 05/04/2013, 05/17/2006, 10/22/2003, Additional history exists Influenza Vaccines (#1) 2024 06/13/20, 12/13/2021, 06/23/2014, Additional history exists COVID-19 Vaccine (3 - 2023-2 5 season) 2024 08/23/2021, 12/14/2020 Hepatitis B Vaccines Completed 01/14/2003, 2002, 2002 HIB Vaccines Completed 07/30/2003, 10/2002, 2002, Additional history exists Pneumococcal Vaccine Completed 07/30/2003, 2002, 2002, Additional history exists IPV Vaccines Completed 05/17/2006, 09/2002, 2002, Additional history exists MMR Vaccines Completed 04/16/2007, 07/30/2003 Varicella Vaccines Completed 04/16/2007, 04/20/2003 HPV Vaccines Completed 07/29/2017, 06/23/2014 Meningococcal Vaccine Completed 08/26/2019, 016 Hepatitis A Vaccines Completed 06/13/2022, 08/26/19 20 Procedures * Due to [place] [employer] law, this organization might not be sharing sensitive test results. Procedure Name Priority Date/Time Associated Diagnosis Comments CHLAMYDIA AND GONORRHEA, AMPLIFIED Routine 06/13/2022 1:09 PM EDT Well adult exam from Last 3 Months or Most Recently Relevant to Health Maintenance Results * Due to [place] [employer] law, this organization might not be sharing sensitive test results. * Chlamydia and Gonorrhoea, Amplified (06/13/2022 1:09 PM EDT) Chlamydia trachomatis RNA, TMA Not Detected Not Detected 06/14/2022 10:31 AM EDT [facility] Neisseria gonorrhoeae, ASHLEY Not Detected Not Detected 06/14/2022 10:31 AM EDT [facility] Specimen Type U 06/14/2022 10:31 AM EDT [facility] Urine (Urine) 06/13/2022 1:0 9 PM EDT 06/13/2022 2:22 PM EDT us Leonor Duggan MD LAB MICROBIOLOGY - GENERAL ORDER IVIS Final Result [facility] from Last 3 Months or Most Recently Relevant to Health Maintenance
--- OUTSIDE RECORDS SUMMARY | 2024-12-19 11:57 | XMS_ITS | Encounter Summary ---
Author Organization [facility] Address [address] [place], [place] [id number] Phone Care Team Providers Care Searchlight Operator Name Role Phone Tamiko Shelton MD Primary Care Provider [phone] Reason for Visit * Reason Comments Med Refill Encounter Details Date Type Department Care Team (Late st Contact Info) Description 04/27/2019 Refill [facility] Pediatrics - [place] [address] [place] [address] Leonor Duggan MD Depression, unspecified depression type [...] type documented in this encounter Care Teams Searchlight Operator Relationship Specialty Start Date End Date Tamiko Shelton MD [address] [place] [id number] PCP - General Pediatrics 10/19/22 08/14/23 documented as of this encounter
--- OUTSIDE RECORDS SUMMARY | 2024-12-19 11:57 | XMS_ITS | Encounter Summary ---
Author Organization [facility] Address [address] [place], [place] [id number] Phone Care Team Providers Care Commercial Counsel Name Role Phone Tamiko Shelton MD Primary Care Provider Reason for Visit * Reason Comments Med Refill Encounter Details Date Type Department Care Team (Late st Contact Info) Description 02/02/2019 Refill [facility] Pediatrics - [place] [address] [place] [address] Leonor Duggan MD Depression, unspecified depression type [...] type documented in this encounter Care Teams Commercial Counsel Relationship Specialty Start Date End Date Tamiko Shelton MD [address] [place] [id number] PCP - General Pediatrics 10/19/22 08/14/23 documented as of this encounter
--- OUTSIDE RECORDS SUMMARY | 2024-12-19 11:57 | XMS_ITS | Encounter Summary ---
Author Organization [facility] Address [address] [place] [address] Phone Care Team Providers Care Sand Mixer Operator Name Role Phone Tamiko Shelton MD Primary Care Provider [phone] Reason for Visit * Reason Comments Med Refill Encounter Details Date Type Department Care Team ([facility] st Contact Info) Description 06/01/2022 Refill [facility] Pediatrics - [place] [address] [place] [address] Liz Mccormick, FLORIAN [address] [place] [address] Acne vulgaris Social History Tobacco Use Types Packs/Day Years [...] as of this encounter Visit Diagnoses Diagnosis Acne vulgaris Other acne documented in this encounter Care Teams Sand Mixer Operator Relationship Specialty Start Date End Date Tamiko Shelton MD [address] [place] [id number] PCP - General Pediatrics 10/19/22 08/14/23 documented as of this encounter
--- OUTSIDE RECORDS SUMMARY | 2024-12-19 11:57 | XMS_ITS | Encounter Summary ---
Author Organization [facility] Address [address] [place], [place] [phone] Phone Care Team Providers Care Digital Measurement Advisor Name Role Phone Tamiko Shelton MD Primary Care Provider [phone] Reason for Visit * Reason Comments Med Refill Encounter Details Date Type Department Care Team (Late st Contact Info) Description 02/11/2022 Refill [facility] Pediatrics - [place] [address] [place] [address] Leonor Duggan MD Acne vulgaris Social History Tobacco Use Types [...] on file documented as of this encounter Miscellaneous Notes * Telephone Encounter - Leonor Duggan MD - 02/16/2022 12:40 PM EDT Dose changed to 50 mg documented in this encounter Plan of Treatment Not on file documented as of this encounter Visit Diagnoses Diagnosis Acne vulgaris Other acne documented in this encounter Care Teams Digital Measurement Advisor Relationship Specialty Start Date End Date Tamiko Shelton MD [address] [place] [id number] PCP - General Pediatrics 10/19/22 08/14/23 documented as of this encounter
--- OUTSIDE RECORDS SUMMARY | 2024-12-19 11:57 | XMS_ITS | Encounter Summary ---
Author Organization [facility] Address [address] [place] [address] Phone Care Team Providers Care Hot Pond Operator Name Role Phone Tamiko Shelton MD Primary Care Provider [phone] Reason for Visit * Reason Comments Med Change Request Encounter Details Date Type Department Care Team ([facility] st Contact Info) Description 03/28/2022 Refill [facility] Pediatrics - [place] [address] [place] [address] Leonor Duggan MD Depression with anxiety; Abdominal pain, unspecified abdominal location Social History Tobacco Use Types Packs/Day Years [...] Diagnoses Diagnosis Depression with anxiety Dysthymic disorder Abdominal pain, unspecified abdominal location documented in this encounter Care Teams Hot Pond Operator Relationship Specialty Start Date End Date Tamiko Shelton MD [address] [place] [id number] PCP - General Pediatrics 10/19/22 08/14/23 documented as of this encounter
--- OUTSIDE RECORDS SUMMARY | 2024-12-19 11:57 | XMS_ITS | Encounter Summary ---
Author Organization [facility] Address [address] [place] [address] Phone Care Team Providers Care Fusion Juncture Grinder Name Role Phone Tamiko Shelton MD Primary Care Provider [phone] Reason for Visit * Reason Comments Med Refill Encounter Details Date Type Department Care Team ([facility] st Contact Info) Description 06/20/2021 Refill [facility] Pediatrics - [place] [address] [place] [address] Lizzette Noble MD [address] [place] [address] Acne vulgaris Social History Tobacco Use Types [...] could have been avoided? No 08/29/2020 Comments Unknown Sex and Gender Information Value Date Recorded Sex Assigned at Not on file Legal Sex Female 6:05 PM EST Gender Identity Female 12/20/2020 4:32 PM EDT Sexual Orientation Not on file documented as of this encounter Plan of Treatment Not on file documented as of this encounter Visit Diagnoses Diagnosis Acne vulgaris Other acne documented in this encounter Care Teams Fusion Juncture Grinder Relationship Specialty Start Date End Date Tamiko Shelton MD [address] [place] [id number] PCP - General Pediatrics 10/19/22 08/14/23 documented as of this encounter
--- OUTSIDE RECORDS SUMMARY | 2024-12-19 11:57 | XMS_ITS | Encounter Summary ---
Author Organization [facility] Address [address] [place] [address] Phone Care Team Providers Care Interceptor Operator Name Role Phone Tamiko Shelton MD Primary Care Provider [phone] Encounter Details Date Type Department Care Team (Late st Contact Info) Description 03/27/2017 Conversion Encounter [facility] Pediatrics - [address], [address] [address] Leonor Duggan MD Social History Tobacco Use Types Packs/Day Years Used Date Smoking Tobacco: Never Assessed Comments Unknown Sex and Gender Information Value Date Recorded Sex Assigned at Not on file Legal Sex Female 6:05 PM EST Gender Identity Female 12/20/2020 4:32 PM EDT Sexual Orientation Not on file documented as of this encounter Plan of Treatment Not on file documented as of this encounter Visit Diagnoses Not on filedocumented in this encounter Care Teams Interceptor Operator Relationship Specialty Start Date End Date Tamiko Shelton MD [address] [place] [address] [address] [place] [address] PCP - General Pediatrics 10/19/22 08/14/23 documented as of this encounter
--- OUTSIDE RECORDS SUMMARY | 2024-12-19 11:57 | XMS_ITS | Encounter Summary ---
Author Organization [facility] Address [address] [place], [place] [id number] Phone Care Team Providers Care Elevator Repairer Name Role Phone Tamiko Shelton MD Primary Care Provider [phone] Reason for Visit * Reason Comments Med Refill Encounter Details Date Type Department Care Team (Late st Contact Info) Description 10/24/2021 Refill [facility] Pediatrics - [place] [address] [place] [address] Leonor Duggan MD Depression with anxiety Social [...] encounter Miscellaneous Notes * Telephone Encounter - Eileen Aden - 10/26/2021 10:40 AM EST Called and spoke with mom, scheduled * Telephone Encounter - Leonor Duggan MD - 10/25/2021 5:14 PM EST Needs med check scheduled-please call to schedule med check documented in this encounter Plan of Treatment Not on file documented as of this encounter Visit Diagnoses Diagnosis Depression with anxiety Dysthymic disorder documented in this encounter Care Teams Elevator Repairer Relationship Specialty Start Date End Date Tamiko Shelton MD [address] [place] [id number] PCP - General Pediatrics 10/19/22 08/14/23 documented as of this encounter
--- OUTSIDE RECORDS SUMMARY | 2024-12-19 11:57 | XMS_ITS | Encounter Summary ---
Author Organization [facility] Address [address] [place], [place] [address] Phone Care Team Providers Care Car Packer Name Role Phone Tamiko Shelton MD Primary Care Provider [phone] Reason for Visit * Reason Comments Med Refill Encounter Details Date Type Department Care Team (Late st Contact Info) Description 11/17/2019 Refill [facility] Pediatrics - [address] [address] Mihir Chacon MD Gastroesophageal reflux disease without esophagitis Social History Tobacco Use Types Packs/Day Years Used Date Smoking Tobacco: Never Smokeless Tobacco: Never Comments:no vaping Alcohol Use Standard Drinks/Week Comments No 0 (1 standard drink = 0.6 oz pur e alcohol) Hunger/Food Answer Date Recorded No 09/06/2018 Stable Housing Answer Date Recorded No 08/21/2019 Transportation Concerns Answer Date Rec orded No 09/06/2018 Hazards in Home Answer Date Recorded No 09/06/2018 Financing Utilities Answer Date Recorde d No 09/06/2018 Safety at Home Answer Date Recorded No 09/06/2018 Outside Support Answer Date Recorded No 09/06/2018 Understanding Health Concerns Answer Da te Recorded No 09/06/2018 Financing Health Concerns Answer Date R ecorded Yes 08/26/2019 Missing School or Work Answer Date Shaka rded No 09/06/2018 Comments Unknown Sex and Gender Information Value Date Recorded Sex Assigned at Not on file Legal Sex Female 6:05 PM EST Gender Identity Female 12/20/2020 4:32 PM EDT Sexual Orientation Not on file documented as of this encounter Miscellaneous Notes * Telephone Encounter - Tonya Woodward LPN - 11/17/2019 1:50 PM EDT Refill requested for Alice???s: Ranitine Dose: 150 mg Refill request source: Pharmacy This medication was last refilled on 10/18/2019 An office visit is not recommended. To be faxed electronically. [id number] - [place], [place] - [address] [facility] [address] [facility] [id number] [facility] [place], [place] [address] [facility] [address] [facility] [address] [id number] [place], [place] - [phone] [place] [address] [place] [address] PCP: Leonor Duggan MD documented in this encounter Plan of Treatment Not on file documented as of this encounter Visit Diagnoses Diagnosis Gastroesophageal reflux disease without esophagitis Esophageal reflux documented in this encounter Care Teams Car Packer Relationship Specialty Start Date End Date Tamiko Shelton MD [address] [place] [address] 2 [place] [address] PCP - General Pediatrics 10/19/22 08/14/23 documented as of this encounter
--- OUTSIDE RECORDS SUMMARY | 2024-12-19 11:57 | XMS_ITS | Encounter Summary ---
Author Organization [facility] Address [address] [place], [place] [address] Phone Care Team Providers Care Cut And Print Machine Operator Name Role Phone Tamiko Shelton MD Primary Care Provider [phone] Reason for Visit * Reason Comments Med Refill Encounter Details Date Type Department Care Team (Late st Contact Info) Description 12/04/2018 Refill [facility] Pediatrics - [place] [address] [place] [address] Leonor Duggan MD Depression, unspecified depression type [...] type documented in this encounter Care Teams Cut And Print Machine Operator Relationship Specialty Start Date End Date Tamiko Shelton MD [address] [place] [address] PCP - General Pediatrics 10/19/22 08/14/23 documented as of this encounter
--- OUTSIDE RECORDS SUMMARY | 2024-12-19 11:58 | XMS_ITS | Encounter Summary ---
Author Organization [facility] Address [address] [place], [place] [address] Phone Care Team Providers Care Head Knitting Machine Fixer Name Role Phone Tamiko Shelton MD Primary Care Provider [phone] Reason for Visit * Reason Comments Med Refill Encounter Details Date Type Department Care Team (Late st Contact Info) Description 09/06/2022 Refill [facility] Pediatrics - [place] [address] [place] [address] Leonor Duggan MD Depression with anxiety Social History Tobacco Use Types Packs/Day Years Used Date Smoking Tobacco: Never Smokeless Tobacco: Never Alcohol Use Standard Drinks/Week Comments No 0 [...] disorder documented in this encounter Care Teams Head Knitting Machine Fixer Relationship Specialty Start Date End Date Tamiko Shelton MD [address] [place] [address] PCP - General Pediatrics 10/19/22 08/14/23 documented as of this encounter
[2024-12-19 13:28] LABS: MANUAL DIFF FLAG NO
[2024-12-19 13:31] LABS: Basophils Percent Auto 0.7 % (0-2); Eosinophils Absolute Auto 0.4 X10*3/uL (0.0-0.4); Eosinophils Percent Auto 6.3 % (0-4); Hematocrit 39.1 % (37.0-47.0); Hemoglobin 12.9 g/dl (12.0-16.0); Imm Gran Abs Auto 0.02 X10*3/uL (0.00-0.03); Imm Gran Pct Auto 0.3 % (0.0-0.4); Lymphocytes Absolute Auto 2.4 X10*3/uL (1.2-4.9); Lymphocytes Percent Auto 41.4 % (20-40); Mean Corpuscular Hemoglobin 29.7 pg (27.0-33.0); Mean Corpuscular Volume 90.1 fL (80.0-98.0); Mean Platelet Volume 10.2 fL (9.4-12.3); Monocytes Absolute Auto 0.4 X10*3/uL (0.1-1.2); Monocytes Percent Auto 7.4 % (2-11); Neutrophils Absolute Auto 2.6 x10*3/uL (2.0-8.3); Neutrophils Percent Auto 43.9 % (45-73); Platelet Count 288 X10*3/uL (160-400); Red Blood Count 4.34 X10*6/uL (4.20-5.50); Red Cell Distribution Width 12.6 % (11.0-16.0); White Blood Count 5.9 X10*3/uL (4.8-10.8)
[2024-12-19 13:59] LABS: Alanine Aminotransferase 16 U/L (0-31); Aspartate Amino Transferase 20 U/L (5-31); Cholesterol 174 mg/dL (<200); Glucose Fasting 81 mg/dL (60-99); HDL Cholesterol 73 mg/dL (>40); LDL Cholesterol Calculated 93 mg/dL (<100); Triglycerides 41 mg/dL (<150)
[2024-12-19 14:14] LABS: Vitamin D 25-OH Total 57.9 ng/mL (>30)
== END 2024-12-19 11:55 | disposition home or self-care (01) ==
LOC: HO.HMGCLDS 11:54
PROVIDERS: PCP Internal Medicine; Visit Provider Internal Medicine
DX: Z00.01 Encounter for general adult medical examination with abnormal findings (principal); R63.6 Underweight; I50.812 Chronic right heart failure; I50.814 Right heart failure due to left heart failure; M65.30 Trigger finger, unspecified finger; M25.50 Pain in unspecified joint; L70.0 Acne vulgaris; F41.9 Anxiety disorder, unspecified; F32.A Depression, unspecified; R12 Heartburn; J30.89 Other allergic rhinitis; Z13.220 Encounter for screening for lipoid disorders; Z13.1 Encounter for screening for diabetes mellitus
CPT/HCPCS: 36415; 80061; 82306; 82947; 84450; 84460; 85025

== ENCOUNTER 2024-12-21 10:38 | Outpatient (AMB) | payer OTHER, SELFPAY ==
[2024-12-21 11:22] VITALS: BP 92/68; PULSE 76; RESP 16; TEMP 36.3; O2SAT 99; BMI 18.5
--- NOTE | 2024-12-21 11:22 | A.OFFPC_ITS ---
Vital Signs 12/21/24 11:22 Height 5 ft 4 in Weight 108 lb BMI 18.5 BP 92/68 Blood Pressure Location Rt brachial Position Sitting Respiration 16 Pulse 76 Pulse Source Pulse Oximeter Temp 97.3 F Temp Source Oral Pulse Oximetry (%) 99 Oxygen Delivery Method Room Air Intake Visit Reasons: Annual PE Intake Note: Pt is here today for her PE Is last menstrual period known: Yes Last menstrual period: 12/14/24 Allergies amoxicillin [From Augmentin] Allergy (Mild, Verified 12/28/24 00:46) Rash Medication List - Last Reconciled 12/28/24 by Jennie Duran MD norgestimate-ethinyl estradiol 0.18/0.215/0.25 mg-0.025 mg 1 tab PO DAILY omeprazole 20 mg PO DAILY Tobacco use date assessed: 12/21/24 Dental Screening Dental Screen Date: 12/21/24 Did you have a dental visit in the last 12 months?: No Did you have a dental problem in the last 6 months where you did not have access to dental care?: No Was dental information given to patient?: Patient has dentist HPI Annual PE HPI Details 24-year-old lady with history of anxiety depression followed by Psychia try, acne vulgaris, followed by dermatology, 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 She is accompanied today by her mother. She is up-to-date with her cervical cancer screening, done at [facility] with last Pap smear done 06/03/2023 with negative findings. She has been feeling well, with no complaints at present time. [facility] Medical History Polyarthralgia Trigger finger (acquired) Underweight Biventricular heart failure with reduced left ventricular function Acne vulgaris Anxiety and depression Heartburn symptom Environmental and seasonal allergies Surgical History H/O removal of cyst Hx of eye surgery Family History Mother Mental health disorder Maternal Grandmother Mental health disorder Paternal Grandmother Mental health disorder Social History Housing: Apartment Patient Tobacco Use Status: Never used Tobacco Years Smoked: smokes THC e-Cigarette/Vaping Use: Currently Using Second Hand Smoke Exposure: No service: No Current occupational status: employed 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 [id number] - PHQ-9 Billing: Patient declined-do not bill Source: Developed by Drs. Franklyn Jeffers, Ellyn Arguelles, Arsenio Vale and colleagues, with an educational lydia from [employer]. Thrive Questionnaire Date Thrive assessed: 03/18/24 What is your living situation today?: I choose not to answer this question Within the past 12 months, did the food you bought not last and you didn't have the money to get more?: I choose not to answer this question Within the past 12 months, did you worry whether your food would run out before you got money to buy more?: I choose not to answer this question Do you have trouble paying for medicines?: I choose not to answer this question Do you have trouble getting transportation to medical appointments?: I choose not to answer this question Do you have trouble paying your heating and electricity bill?: I choose not to answer this question Do you have trouble taking care of your child, family member or friend?: I choose not to answer this question Do you have trouble with day-to-day activities such as bathing, preparing meals, shopping, managing finances, etc.?: I choose not to answer this question Are you currently unemployed and looking for a job?: I choose not to answer this question Are you interested in more education?: I choose not to answer this question Currently or been in a relationship where the following occur: I choose not to answer THRIVE Score: 0 AUDIT C Alcohol Use Questionnaire (AUDIT-C) 1. How often do you have a drink containing alcohol?: Monthly or less 2. How many drinks containing alcohol do you have on a typical day when you are drinking?: 1 or 2 3. How often do you have six or more drinks on one occasion?: Never Total Score: 1 CLAY-7 AMB Questionnaire CLAY-7 Date CLAY - 7 assessed: 03/18/24 Source: Developed by DrsGideon Jeffers, Ellyn Arguelles, Arsenio Vale and colleagues, with an educational lydia from [employer]. Review of Systems Const All systems reviewed & are unremarkable except as noted in HPI and below ENT Reports no additional complaints Card Reports no additional complaints Resp Reports no additional complaints GI Reports no additional complaints Reports no additional complaints Musc Reports as per HPI Skin/Breast Denies lesions and Denies rash Neuro Reports no additional complaints Psych Reports no additional complaints Endo Reports no additional complaints Red/Lymph Reports no additional complaints Aller/Immun Reports no additional complaints Physical exam (Primary Care) Vital Signs: Last Vital Signs Temp 97.3 F 12/21/24 11:22 Pulse 76 12/21/24 11:22 Resp 16 12/21/24 11:22 BP 92/68 12/21/24 11:22 Pulse Ox 99 12/21/24 11:22 Oxygen Delivery Method Room Air 12/21/24 11:22 BMI result Body Mass Index 18.5 BMI Assessment/Plan discussion: Low BMI Low, Plan discussed: lifestyle, increase calorie intake and dietary Tobacco/Smoking Status: Tobacco use Status Tobacco use date assessed 12/21/24 12/21/24 11:30 Patient Tobacco Use Status Never used Tobacco 12/21/24 11:30 e-Cigarette/Vaping Use Currently Using 12/21/24 11:30 Are you ready to quit: No Thrive Assessment: Date of Thrive Assessment Date Thrive assessed 03/18/24 12/21/24 11:30 Currently or been in a relationship where the following occur: I choose not to answer Const Other: Alert oriented x3 accompanied by mom, underweight, no acute cardiorespiratory distress noted Nutritional Appearance: underweight Orientation/consciousness: patient oriented x3 [facility] Head: Yes normocephalic General nose exam: Normal external nose present Face and sinus: Yes face symmetric Mouth: Normal oral and palatal mucosa present, oropharynx normal and moist mucous membranes Eyes General: appearance normal, both eyes and all related structures Neck Neck: Yes full ROM, Yes no lymphadenopathy and Yes supple Thyroid: Thyroid normal (Nonpalpable) Resp Effort & Inspection: normal respiratory effort and able to speak in complete sentences Auscultation: clear to auscultation bilaterally Cardio Rate: regular rate Rhythm: regular rhythm Heart sounds: S1 normal heart sound present and S2 normal heart sound present GI Palpation (GI): Soft to palpation, nontender, no guarding and no masses Skin Other: Diffuse acneiform lesions on face Neuro General: patient oriented x3, gait normal, tone normal, moves all extremities, Normal light touch and pain sensation, no focal motor deficits and CN's II-XI intact bilaterally Extrem Other: Slight tenderness on palpation of left MCP General: Yes full ROM, Yes no joint enlargement, Yes no clubbing, cyanosis or edema and Yes normal gait Psych Appearance: grossly normal Mental Status: mental status grossly normal Speech and movement: Normal speech and movement present Affect: normal affect Results Reviewed Results Reviewed: Name: Alice Romero Age/Sex: 24/F : 2000 Unit#: [id number] Attend Dr: Jennie Duran MD Re12/19/24 Status: DEP REF Location: [facility] Disch: SPEC : [id number] DALTON: 12/19/24 STATUS: COMP REQ : [id number] RECD: 12/19/241327 SUBM DR: Jennie Duran MD COMP: 12/19/24-1158 ENTERED: 12/19/24-1158 [facility] DR: ORDERED: CBC Auto Diff Test Result Flag Reference WBC 5.9 4.8-10.8 X10*3/uL RBC 4.34 4.20-5.50 X10*6/uL HGB 12.9 12.0-16.0 g/dl HCT 39.1 37.0-47.0 % MCV 90.1 80.0-98.0 fL MCH 29.7 27.0-33.0 pg MCHC 33.0 31.0-35.0 g/dl RDW 12.6 11.0-16.0 % PLT 288 160-400 X10*3/uL MPV 10.2 9.4-12.3 fL Neut Pct Auto 43.9 L 45-73 % ImGran Pct Auto 0.3 0.0-0.4 % Lymp Pct Auto 41.4 H 20-40 % [place] Pct Auto 7.4 2-11 % Eos Pct Auto 6.3 H 0-4 % Baso Pct Auto 0.7 0-2 % NRBC Pct Auto 0.0 0.0-0.2 /100WBC ANC Neut Abs # 2.6 2.0-8.3 x10*3/uL ImGran Abs Auto 0.02 0.00-0.03 X10*3/uL Lymph Abs Auto 2.4 1.2-4.9 X10*3/uL [place] Abs Auto 0.4 0.1-1.2 X10*3/uL Eos Abs Auto 0.4 0.0-0.4 X10*3/uL Baso Abs Auto 0.0 0.0-0.2 X10*3/uL NRBC Abs Auto 0.000 0.0-0.012 X10*3/u cct#: [id number] Unit#: [id number] Attend Dr: Jennie Duran MD Re12/19/24 Status: DEP REF Location: [facility] Disch: SPEC : [id number] D[place]: 12/19/24-1154 STATUS: COMP REQ : [id number] RECD: 12/19/24-[address]: Jennie Duran MD COMP: 12/19/24-1414 ENTERED: 12/19/24-[address]: ORDERED: Glu Fasting, AST, ALT, Lipid Panel, Vitamin D 25-OH Test Result Flag Reference FBS 81 60-99 mg/dL AST (GOT) 20 5-31 U/L ALT (GPT) 16 0-31 U/L Triglyceride 41 <150 mg/dL Desirable Triglyceride: less than 150 mg/dL Borderline High Triglyceride 150-199 mg/dL High Triglyceride: 200-499 mg/dL Very High Triglyceride: greater than or equal to 5OO mg/dL Cholesterol 174 <200 mg/dL Desirable Cholesterol: less than 200 mg/dL Borderline High Cholesterol: 200-239 mg/dL High Cholesterol: greater than 239 mg/dL LDL Calculated 93 <100 mg/dL Desirable LDL: less than 100 mg/dL Near Optimal/Above Optimal LDL: 110-129 mg/dL Borderline High LDL: 130-159 mg/dL High LDL: 160-189 mg/dL Very High LDL: greater than or equal to 190 mg/dL HDL 73 >40 mg/dL Desirable HDL: greater than 40 mg/dL Note: This HDL assay may give artificially low results in patients with liver disease. Vitamin D 25-OH 57.9 >30 ng/mL Health Based Reference Values* < 20 ng/mL Deficient 20-30 ng/mL Insufficient > 30 ng/mL Sufficient *Cristiano ALEXANDER. N Engl J Med. 2007;357:266-280 There is no well-established upper level of normal vitamin D levels. Some laboratories use 50 ng/mL as an upper limit of normal. However, toxicity is patient-dependent and may occur at any level. Careful correlation with the patient's presentation is necessary and, if there is concern for vitamin D toxicity, treatment should be considered irrespective of the serum level. Care must be taken in interpreting Vitamin D results from different laboratories and methodologies. Published data demonstrated that results from patients undergoing hemodialysis may show a negative bias when tested with various automated 25-OH vitamin D assays when compared to LC-MS/MS. When testing samples from patients whose predominant form of Vitamin D is Vitamin D2, such as patients receiving Vitamin D2 supplementation, results that are subtherapeutic should be confirmed with another method such as LC-MS/MS. Coding Level of Care Code Est Pt Prev Care 18-39y(35388) Diagnoses Annual visit for general adult medical examination with abnormal findings Z00.01 Acne vulgaris L70.0 Assessment & Plan Assessment & Plan (1) Annual visit for general adult medical examination with abnormal findings: Code(s): Z00.01 - Encounter for general adult medical examination with abnormal findings Plan: Latest fasting lab results reviewed with patient Recommended dental visit every 6 months and regular eye exams, at least every 2 years. Take adequate calcium in diet and vitamin-D 3 at 2000 IU per cap once a day, in addition to weight- bearing exercises to help maintain good muscle tone and weight control. Instructed to do self-breast exam, and recommended to get yearly mammogram, starting at age 40. Cervical cancer screening is up-to-date. Does not want to get any vaccines (2) Acne vulgaris: Comment: Sees [facility] Code(s): L70.0 - Acne vulgaris Category: Medical Plan: Followed at [facility]
--- OUTSIDE RECORDS SUMMARY | 2024-12-21 12:03 | XMS_ITS | Encounter Summary ---
Author Organization [facility] Address [address] [place], [place] [phone] Phone Care Team Providers Care Tool Lathe Operator Name Role Phone Tamiko Shelton MD Primary Care Provider [phone] Reason for Visit * Reason Comments Med Refill Encounter Details Date Type Department Care Team (Late st Contact Info) Description 01/26/2019 Refill [facility] Pediatrics - [place] [address] [place] [address] Leonor Duggan MD Depression, unspecified depression type [...] type documented in this encounter Care Teams Tool Lathe Operator Relationship Specialty Start Date End Date Tamiko Shelton MD [address] [place] [address] PCP - General Pediatrics 10/19/22 08/14/23 documented as of this encounter
--- OUTSIDE RECORDS SUMMARY | 2024-12-21 12:03 | XMS_ITS | Encounter Summary ---
Author Organization [facility] Address [address] [place], [place] [address] Phone Care Team Providers Care Apparel Stock Checker Name Role Phone Tamiko Shelton MD Primary Care Provider [phone] Reason for Visit * Reason Comments Med Refill Encounter Details Date Type Department Care Team (Late st Contact Info) Description 02/11/2022 Refill [facility] Pediatrics - [place] [address] [place] [address] Leonor Duggan MD Acne vulgaris Social History [...] acne documented in this encounter Care Teams Apparel Stock Checker Relationship Specialty Start Date End Date Tamiko Shelton MD [address] [place] [address] PCP - General Pediatrics 10/19/22 08/14/23 documented as of this encounter
--- OUTSIDE RECORDS SUMMARY | 2024-12-21 12:03 | XMS_ITS | Encounter Summary ---
Author Organization [facility] Address [address] [place] [address] Phone Care Team Providers Care Aviation Neuropsychologist Name Role Phone Tamiko Shelton MD Primary Care Provider [phone] Reason for Visit * Reason Comments Med Refill Encounter Details Date Type Department Care Team ([facility] st Contact Info) Description 06/20/2021 Refill [facility] Pediatrics - [place] [address] [place] [address] Lizzette Noble MD [address] [place] [address] Acne vulgaris Social History Tobacco Use Types [...] acne documented in this encounter Care Teams Aviation Neuropsychologist Relationship Specialty Start Date End Date Tamiko Shelton MD [address] [place] [address] PCP - General Pediatrics 10/19/22 08/14/23 documented as of this encounter
--- OUTSIDE RECORDS SUMMARY | 2024-12-21 12:03 | XMS_ITS | Encounter Summary ---
Author Organization [facility] Address [address] [place], [place] [address] Phone Care Team Providers Care Yard Switcher Name Role Phone Tamiko Shelton MD Primary Care Provider [phone] Reason for Visit * Reason Comments Med Refill Encounter Details Date Type Department Care Team (Late st Contact Info) Description 10/24/2021 Refill [facility] Pediatrics - [place] [address] [place] [address] Leonor Duggan MD Depression with anxiety Social [...] disorder documented in this encounter Care Teams Yard Switcher Relationship Specialty Start Date End Date Tamiko Shelton MD [address] [place] [address] PCP - General Pediatrics 10/19/22 08/14/23 documented as of this encounter
--- OUTSIDE RECORDS SUMMARY | 2024-12-21 12:03 | XMS_ITS | Encounter Summary ---
Author Organization [facility] Address [address] [place], [place] [address] Phone Care Team Providers Care Brass Burnisher Name Role Phone Tamiko Shelton MD Primary Care Provider [phone] Reason for Visit * Reason Comments Med Refill Encounter Details Date Type Department Care Team (Late st Contact Info) Description 11/08/2021 Refill [facility] Pediatrics - [place] [address] [place] [address] Leonor Duggan MD Depression with anxiety Social [...] disorder documented in this encounter Care Teams Brass Burnisher Relationship Specialty Start Date End Date Tamiko Shelton MD [address] [place] [address] PCP - General Pediatrics 10/19/22 08/14/23 documented as of this encounter
--- OUTSIDE RECORDS SUMMARY | 2024-12-21 12:03 | XMS_ITS | Encounter Summary ---
Author Organization [facility] Address [address] [place], [place] [address] Phone Care Team Providers Care Electrician Apprentice Powerhouse Name Role Phone Tamiko Shelton MD Primary Care Provider [phone] Reason for Visit * Reason Comments Med Refill Encounter Details Date Type Department Care Team (Late st Contact Info) Description 04/27/2019 Refill [facility] Pediatrics - [place] [address] [place] [address] Leonor Duggan MD Depression, unspecified depression type [...] type documented in this encounter Care Teams Electrician Apprentice Powerhouse Relationship Specialty Start Date End Date Tamiko Shelton MD [address] [place] [address] PCP - General Pediatrics 10/19/22 08/14/23 documented as of this encounter
--- OUTSIDE RECORDS SUMMARY | 2024-12-21 12:04 | XMS_ITS | Encounter Summary ---
Author Organization [facility] Address [address] [place], [place] [address] Phone Care Team Providers Care Development Director Name Role Phone Tamiko Shelton MD Primary Care Provider [phone] Reason for Visit * Reason Comments Med Refill Encounter Details Date Type Department Care Team (Late st Contact Info) Description 12/04/2018 Refill [facility] Pediatrics - [place] [address] [place] [address] Leonor Duggan MD Depression, unspecified depression type [...] type documented in this encounter Care Teams Development Director Relationship Specialty Start Date End Date Tamiko Shelton MD [address] [place] [address] PCP - General Pediatrics 10/19/22 08/14/23 documented as of this encounter
--- OUTSIDE RECORDS SUMMARY | 2024-12-21 12:04 | XMS_ITS | Encounter Summary ---
Author Organization [facility] Address [address] [place] [address] Phone Care Team Providers Care Health Safety Specialist Name Role Phone Tamiko Shelton MD Primary Care Provider [phone] Reason for Visit * Reason Comments Med Refill Encounter Details Date Type Department Care Team ([facility] st Contact Info) Description 06/01/2022 Refill [facility] Pediatrics - [place] [address] [place] [address] Liz Mccormick, FLORIAN [address] [place] [address] Acne vulgaris Social History Tobacco Use Types [...] acne documented in this encounter Care Teams Health Safety Specialist Relationship Specialty Start Date End Date Tamiko Shelton MD [address] [place] [address] PCP - General Pediatrics 10/19/22 08/14/23 documented as of this encounter
--- OUTSIDE RECORDS SUMMARY | 2024-12-21 12:04 | XMS_ITS | Encounter Summary ---
Author Organization [facility] Address [address] [place] [address] Phone Care Team Providers Care Manager Of Application Development Name Role Phone Tamiko Shelton MD Primary Care Provider [phone] Reason for Visit * Reason Comments Med Change Request Encounter Details Date Type Department Care Team ([facility] st Contact Info) Description 03/28/2022 Refill [facility] Pediatrics - [place] [address] [place] [address] Leonor Duggan MD Depression with anxiety; Abdominal [...] location documented in this encounter Care Teams Manager Of Application Development Relationship Specialty Start Date End Date Tamiko Shelton MD [address] [place] [address] PCP - General Pediatrics 10/19/22 08/14/23 documented as of this encounter
--- OUTSIDE RECORDS SUMMARY | 2024-12-21 12:04 | XMS_ITS | Encounter Summary ---
Author Organization [facility] Address [address] [place], [place] [id number] Phone Care Team Providers Care Automatic Bow Maker Machine Tender Name Role Phone Tamiko Shelton MD Primary Care Provider [phone] Reason for Visit * Reason Comments Med Refill Encounter Details Date Type Department Care Team (Late st Contact Info) Description 11/17/2019 Refill [facility] Pediatrics - [address] [address] Mihir Chacon MD Gastroesophageal reflux disease without [...] is not recommended. To be faxed electronically. [id number] - [place], [place] - [address] [facility] [address] [facility] [phone] [facility] [place], [place] [address] [facility] [address] [facility] [address] [id number] [place], [place] - [phone] [place] [address] [place] [address] PCP: Leonor Duggan MD documented in this encounter Plan of Treatment Not on file documented as of this encounter Visit Diagnoses Diagnosis Gastroesophageal reflux disease without esophagitis Esophageal reflux documented in this encounter Care Teams Automatic Bow Maker Machine Tender Relationship Specialty Start Date End Date Tamiko Shelton MD [address] [place] [address] 2 [place] [address] PCP - General Pediatrics 10/19/22 08/14/23 documented as of this encounter
--- OUTSIDE RECORDS SUMMARY | 2024-12-21 12:04 | XMS_ITS | Encounter Summary ---
Author Organization [facility] Address [address] [place], [place] [address] Phone Care Team Providers Care Cartridge Feeder Name Role Phone Tamiko Shelton MD Primary Care Provider [phone] Reason for Visit * Reason Comments Med Refill Encounter Details Date Type Department Care Team (Late st Contact Info) Description 09/06/2022 Refill [facility] Pediatrics - [place] [address] [place] [address] Leonor Duggan MD Depression with anxiety Social [...] disorder documented in this encounter Care Teams Cartridge Feeder Relationship Specialty Start Date End Date Tamiko Shelton MD [address] [place] [id number] PCP - General Pediatrics 10/19/22 08/14/23 documented as of this encounter
--- OUTSIDE RECORDS SUMMARY | 2024-12-21 12:04 | XMS_ITS | Encounter Summary ---
Author Organization [facility] Address [address] [place] [address] Phone Care Team Providers Care Enrober Tender Name Role Phone Tamiko Shelton MD Primary Care Provider [phone] Encounter Details Date Type Department Care Team (Late st Contact Info) Description 03/27/2017 Conversion Encounter [facility] Pediatrics - [address], [address] [address] Leonor Duggan MD Social History Tobacco Use [...] on filedocumented in this encounter Care Teams Enrober Tender Relationship Specialty Start Date End Date Tamiko Shelton MD [address] [place] [address] 2 [place] [address] PCP - General Pediatrics 10/19/22 08/14/23 documented as of this encounter
--- OUTSIDE RECORDS SUMMARY | 2024-12-21 12:04 | XMS_ITS | Encounter Summary ---
Author Organization [facility] Address [address] [place], [place] [id number] Phone Care Team Providers Care Supervisor Poultry Hatchery Name Role Phone Tamiko Shelton MD Primary Care Provider [phone] Reason for Visit * Reason Comments Med Refill Encounter Details Date Type Department Care Team (Late st Contact Info) Description 02/02/2019 Refill [facility] Pediatrics - [place] [address] [place] [address] Leonor Duggan MD Depression, unspecified depression type [...] type documented in this encounter Care Teams Supervisor Poultry Hatchery Relationship Specialty Start Date End Date Tamiko Shelton MD [address] [place] [id number] PCP - General Pediatrics 10/19/22 08/14/23 documented as of this encounter
--- OUTSIDE RECORDS SUMMARY | 2024-12-21 12:04 | XMS_ITS | Clinical Summary ---
Author Organization [facility] Address [address] [place] [address] Phone Care Team Providers Care Morning Show Host Name Role Phone Unavailable Primary Care Provider [...] 30 g 2 11/16/19 22 Active Vit-Fe [id number] ( Vitamin/Min +DHA) 27-0.8-200 MG capsuleIndication s:Encounter [...] OF UNKNOWN ETIOLOGY 04/2023 - Following with [facility]iology. Reduced EF 35-45%. Will be [...] 12/21/2020 Overview (06/07/2021): Gets allergy shots at [facility]. Has epipen per repairer art objects from prior reaction to allergy shot. 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 Procedure Name Priority Date/Time Associated Diagnosis Comments CHLAMYDIA AND GONORRHEA, AMPLIFIED Routine 06/13/2022 1:09 PM EDT Well adult exam from Last 3 Months or Most Recently Relevant to Health Maintenance Results * Due to [place] [employer] law, this organization might not be sharing sensitive test results. * Chlamydia and Gonorrhoea, Amplified (06/13/2022 1:09 PM EDT) Chlamydia trachomatis RNA, TMA Not Detected Not Detected 06/14/2022 10:31 AM EDT [facility] Neisseria gonorrhoeae, ASHLEY Not Detected Not Detected 06/14/2022 10:31 AM EDT [facility] Specimen Type U 06/14/2022 10:31 AM EDT [facility] Urine (Urine) 06/13/2022 1:0 9 PM EDT 06/13/2022 2:22 PM EDT us Leonor Duggan MD LAB MICROBIOLOGY - GENERAL ORDER IVIS Final Result [facility] from Last 3 Months or Most Recently Relevant to Health Maintenance
== END 2024-12-21 12:07 | disposition home or self-care (01) ==
LOC: HO.HMCC 10:38
PROVIDERS: PCP Internal Medicine; Visit Provider Internal Medicine
DX: Z00.01 Encounter for general adult medical examination with abnormal findings (principal); L70.0 Acne vulgaris

== ENCOUNTER → 2024-12-21 10:38 | Outpatient (BNVA) | payer OTHER, SELFPAY | PROVIDERS: PCP Internal Medicine; Visit Provider Internal Medicine ==